=== PATIENT | male | born 1965 | race Caucasian/White ===

== ENCOUNTER 2017-10-01 06:59 | Day surgery (SDC) | payer OTHER ==
[~2017-10-01 06:59] MED LIST: Buffered Lidocaine 0.9% SYRIN* 5 ML/SYR SYRINGE INTRADERM ONE; Sodium Citrate/Citric Acid* 15 ML UDC PO ONE
[2017-10-01] MEDS ORDERED: ceFAZolin 2 GM PREMIX (*) 2 GM/50 ML BAG IVPB ONE (07:18)
[2017-10-01] MEDS ORDERED: Sodium Citrate/Citric Acid* 15 ML UDC ONE (07:18)
[2017-10-01] MEDS ORDERED: Buffered Lidocaine 0.9% SYRIN* 5 ML/SYR SYRINGE ONE (07:19)
[2017-10-01] MEDS ORDERED: DiMENhydriNATE IV* 50 MG/ML VIAL IV PUSH PRN (09:04)
[2017-10-01] MEDS ORDERED: fentaNYL* 50 MCG/ML 2 ML VIAL (100 MCG VIAL) IV PRN (09:04)
[2017-10-01] MEDS ORDERED: Propofol* 10 MG/ML 20 ML BTL IV PUSH ONE (09:43)
[2017-10-01] MEDS ORDERED: Lidocaine 2% PF * 5 ML VIAL ONE (09:43)
[2017-10-01] MEDS ORDERED: fentaNYL* 50 MCG/ML 2 ML VIAL (100 MCG VIAL) ONE ×2 (10:38→11:59)
[2017-10-01] MEDS ORDERED: Midazolam* 1 MG/ML 2 ML VIAL (2 MG) ONE (10:38)
[2017-10-01] MEDS ORDERED: Bupivacaine 0.25% SDV* 30 ML ONE (12:58)
[2017-10-01] MEDS ORDERED: HYDROcodone/ACETAMIN 5-325 MG* 1 TAB ONE (14:38)
[2017-10-01] MEDS ORDERED: Ibuprofen TAB* 600 MG ONE (14:38)
[2017-10-01 14:44] VITALS: BP 127/84
--- NOTE | 2017-10-02 11:44 | OP ---
DATE OF OPERATION: 10/01/17 [facility] DATE OF : 67 SURGEON: Marco Antonio Mcintosh MD. HYDROGRAPHIC SURVEYOR: RESHMA Fernandez. An drafter assistant was needed for the entirety of the procedure to aid in positioning the arm and for retraction. ANESTHESIOLOGIST: Dr. Sigala. ANESTHESIA: General. 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 OPERATIVE PROCEDURE: Right ring finger proximal interphalangeal joint arthroplasty with Integra silicone implant. INDICATIONS: Felipe had an injury several years ago to the finger. It has gotten very stiff. It causes him a moderate amount of discomfort. I have talked to him about his treatment options including a fusion in a more functional position versus an attempted arthroplasty with the understanding that he may require fusion at a later date. He would like to proceed with the arthroplasty first. We talked about risks and benefits, including risk of instability, risk of stiffness, risk of pain. He understands all this and he would like to proceed. He certainly understands he may need future surgery. ESTIMATED BLOOD LOSS: 2 mL. COMPLICATIONS: None. FINDINGS: As expected. DESCRIPTION OF PROCEDURE: Felipe was seen in the preoperative holding area. The correct side, site, and procedure were identified. We came back to the operating room where the arm was prepped and draped in the usual fashion after anesthesia was induced. A time-out was performed. We began by exsanguinating the extremity and the tourniquet was inflated to 250 mmHg. I made a curvilinear incision over the dorsum of the right ring finger PIP joint. Full thickness flaps were raised off the peritenon. The extensor tendon apparatus was between the central slip and the radial sagittal band. Great care was taken to preserve the central slip attachment. The osteophytes of the dorsum of the middle phalanx were trimmed back. The collateral ligaments were recessed proximally to allow for more joint flexion. I then placed my alignment guide after opening the cortex with the dante. Once the alignment guide was in place and placement was confirmed fluoroscopically, I went ahead and made my cut of the proximal phalanx head. I then went ahead and broached up to a size #1. I then came distally and used sagittal saw to very carefully remove the osteophytes that had developed circumferentially throughout the middle phalanx base. I then used the dante to open up the cortex of the base of the middle phalanx. We broached up to a size #1. Once everything was released and we had done all the broaching I went ahead and trialed the implant. The #1 was definitely the right size. We took out the trial and placed the silicone implant. There was excellent motion from 5 to 10 degrees of hyperextension to past 90 degrees of flexion. The implant was stable. The implant was not handled with gloves. The wound was irrigated out. The extensor tendon was repaired with 4-0 Prolene suture and one 3- 0 Monocryl and one 3-0 Ethibond suture. The skin was closed with 4-0 Monocryl suture. The wound was dressed with Xeroform, 4x4s, sterile Webril, and a volar splint in the intrinsic plus position was applied. Tourniquet was deflated. The finger pinked up immediately. He was taken to the recovery room in stable condition. [id number]/[facility] #: [id number] [facility] HOSPITALKeshav
== END 2017-10-01 14:45 | disposition home or self-care (01) ==
LOC: OR 06:59
PROVIDERS: ATTEND Orthopaedic Surgery Hand Surgery
PROC: 0RQW0ZZ Repair Right Finger Phalangeal Joint, Open Approach (ICD-10-PCS; principal; 2017-10-01 09:45)
DX: M19.141 Post-traumatic osteoarthritis, right hand (principal); S62.60 Fracture of unspecified phalanx of finger; X58.XXXS Exposure to other specified factors, sequela
CPT/HCPCS: A9270-GY; J0690; J2250; J2704; J3010